=== PATIENT | female | born 1975 | race Caucasian/White ===

== ENCOUNTER 2016-11-15 19:06 | Emergency (ER) | payer OTHER ==
[~2016-11-15] VITALS: Ht 165.1 cm; Wt 95.4 kg
[~2016-11-15 19:06] MED LIST: CIPROFLOXACIN500 M1 PO; COMBIVENT RESPIM4 GM IH; GABAPENTIN600 MG PO; LISINOPRIL10 MG PO; METHADONE PO; METHADONE10 MG PO; PREDNISONE20 MG PO; PROVENTIL,2.5 MG/3 M IH
[2016-11-15] MEDS ORDERED: INDOCIN50 MG PO (21:12)
[2016-11-15] MEDS ORDERED: PREDNISONE20 MG PO (21:12)
[2016-11-15] MEDS ORDERED: FLEXERIL10 MG PO (21:12)
[2016-11-15] MEDS ORDERED: LIDODERM 5% P1 PATCH TD (22:09)
[2016-11-15 22:44] VITALS: BP 156/102
== END 2016-11-15 22:44 | disposition home or self-care (01) ==
LOC: RME 19:06 → EME 19:06 → RME 22:44
DX: M62.830 Muscle spasm of back (principal); M50.30 Other cervical disc degeneration, unspecified cervical region; M54.2 Cervicalgia; M54.9 Dorsalgia, unspecified; G89.29 Other chronic pain; Z98.1 Arthrodesis status; Z88.2 Allergy status to sulfonamides; F17.200 Nicotine dependence, unspecified, uncomplicated; I10 Essential (primary) hypertension; J45.909 Unspecified asthma, uncomplicated
CPT/HCPCS: 99281; 99284; J3010; J7512

== ENCOUNTER 2016-11-17 13:44 | Emergency (ER) | payer OTHER ==
[~2016-11-17] VITALS: Ht 165.1 cm; Wt 98.0 kg
[~2016-11-17 13:44] MED LIST changes: +FLEXERIL10 MG PO; +INDOCIN50 MG PO; +LIDODERM 5% P1 PATCH TD
[2016-11-17] MEDS ORDERED: TORADOL10 MG PO (15:43)
[2016-11-17] MEDS ORDERED: SKELAXIN800 MG PO (15:43)
[2016-11-17 17:47] VITALS: BP 150/98
== END 2016-11-17 17:47 | disposition home or self-care (01) ==
LOC: EME 13:44
DX: M54.9 Dorsalgia, unspecified (principal); G89.29 Other chronic pain; F41.9 Anxiety disorder, unspecified
CPT/HCPCS: 99281; 99283; J1100; J7050

== ENCOUNTER 2017-05-15 07:25 | Day surgery (SDC) | payer OTHER ==
[~2017-05-15] VITALS: Ht 165.1 cm; Wt 95.0 kg
[~2017-05-15 07:25] MED LIST changes: +ADVAIR 250/501 DISK IH; +GABAPENTIN400 MG PO; +LASIX40 MG PO; +METHADONE 22 MG/1 ML PO; +SEROQUEL50 MG PO; +SKELAXIN800 MG PO; +TORADOL10 MG PO
[2017-05-15 08:01] VITALS: BP 139/82
[2017-05-15] MEDS ORDERED: PERCOCET 5/31 TABLET PO (10:18)
[2017-05-15] MEDS ORDERED: COLACE100 MG PO (10:18)
[2017-05-15 11:04] VITALS: BP 144/83
[2017-05-15 11:55] VITALS: BP 115/66
== END 2017-05-15 12:06 | disposition home or self-care (01) ==
LOC: SDC
PROC: 06BY0ZC Excision of Hemorrhoidal Plexus, Open Approach (ICD-10-PCS; principal; 2017-05-15)
DX: K64.8 Other hemorrhoids (principal); K64.4 Residual hemorrhoidal skin tags; I10 Essential (primary) hypertension; J45.909 Unspecified asthma, uncomplicated; M54.12 Radiculopathy, cervical region; K21.9 Gastro-esophageal reflux disease without esophagitis; M79.7 Fibromyalgia; F17.200 Nicotine dependence, unspecified, uncomplicated; Z88.2 Allergy status to sulfonamides; Z80.0 Family history of malignant neoplasm of digestive organs
CPT/HCPCS: 88304; J0330; J0690; J1100; J2250; J2405; J3010

== ENCOUNTER 2017-11-13 10:00 | Day surgery (SDC) | payer OTHER ==
[~2017-11-13] VITALS: Ht 165.1 cm; Wt 95.3 kg
[~2017-11-13 10:00] MED LIST changes: +COLACE100 MG PO; +PERCOCET 5/31 TABLET PO
== END 2017-11-13 11:10 | disposition home or self-care (01) ==
LOC: PAIN 10:00 → SDC 10:30 → PAIN 10:30
DX: M51.16 Intervertebral disc disorders with radiculopathy, lumbar region (principal); M47.816 Spondylosis without myelopathy or radiculopathy, lumbar region; M46.1 Sacroiliitis, not elsewhere classified; M47.812 Spondylosis without myelopathy or radiculopathy, cervical region; M54.81 Occipital neuralgia; M79.7 Fibromyalgia; I10 Essential (primary) hypertension; K21.9 Gastro-esophageal reflux disease without esophagitis; E78.5 Hyperlipidemia, unspecified; F17.210 Nicotine dependence, cigarettes, uncomplicated; Z88.2 Allergy status to sulfonamides
CPT/HCPCS: J1100; J2250

== ENCOUNTER 2018-01-05 17:10 | Emergency (ER) | payer OTHER ==
[~2018-01-05] VITALS: Ht 165.1 cm; Wt 100.2 kg
[~2018-01-05 17:10] MED LIST changes: +BACLOFEN20 MG PO; +NAPROSYN500 MG PO
[2018-01-05 18:17] LABS: HEMATOCRIT 40.4 % (36.0-46.0); HEMOGLOBIN 13.8 G/DL (11.9-15.5); MCH 29.6 PG (29.0-34.0); MCHC 34.2 G/DL (30.0-36.0); MCV 86.7 FL (83-99); PLATELET COUNT 284 K/uL (156-360); RBC DIS.WIDTH-CV 13.5 % (11.8-14.6); RBC DIS.WIDTH-SD 42.2 % (39-53); RED BLOOD COUNT 4.66 M/uL (3.80-5.20)
[2018-01-05 18:25] LABS: ALBUMIN 3.9 g/dL (3.2-4.8); CHLORIDE 106 mEq/L (99-109); POTASSIUM 3.5 mEq/L (3.7-5.4); SODIUM 142 mEq/L (136-147)
[2018-01-05 18:27] LABS: GLUCOSE 98 mg/dL (70-99); TOTAL PROTEIN 7.3 g/dL (6.4-8.3)
[2018-01-05 18:29] LABS: TOTAL BILIRUBIN 0.5 mg/dL (0.0-1.0)
[2018-01-05 18:31] LABS: ALKALINE PHOSPHATASE 81 IU/L (3-129); CREATININE 1.4 mg/dL (0.6-1.3); GFR ESTIMATE (CALCULATED) 44 mL/min/
[2018-01-05 18:32] LABS: AST (GOT) 19 IU/L (2-34); UREA NITROGEN (BUN) 14 mg/dL (9-23)
[2018-01-05 18:34] LABS: ALT (GPT) 18 IU/L (3-49)
[2018-01-05 18:44] LABS: APPEARANCE SL.HAZY ((CLEAR)); BILIRUBIN NEGATIVE; BLOOD NEGATIVE; COLOR AMBER ((YELLOW)); GLUCOSE (STRIP) NEGATIVE; KETONES NEGATIVE; LEUKOCYTES SMALL; NITRITE NEGATIVE; PROTEIN (STRIP) 30; SPECIFIC GRAVITY 1.027 (1.000-1.030)
[2018-01-05 19:04] LABS: RED BLOOD CELLS 0-5 /HPF (0-5); WHITE BLOOD CELLS 0-5 /HPF (0-5)
[2018-01-05 19:05] LABS: BACTERIA 1+ /HPF; CALCIUM OXALATE CRYSTALS 1+ /HPF; EPITHELIAL CELLS 1+ /HPF; MUCUS 3+ /LPF; UCUL ADDED? NO
[2018-01-05 19:44] VITALS: BP 162/107
== END 2018-01-05 19:44 | disposition left against medical advice (07) ==
LOC: EME 17:10
PROVIDERS: Nurse Practitioner Family
DX: R10.9 Unspecified abdominal pain (principal); K59.00 Constipation, unspecified; M79.7 Fibromyalgia; Z87.891 Personal history of nicotine dependence; Z88.2 Allergy status to sulfonamides
CPT/HCPCS: 74018; 80053; 81003; 85027; 99281; 99284

== ENCOUNTER 2018-03-06 16:29 | Emergency (ER) | payer OTHER ==
[~2018-03-06] VITALS: Ht 165.1 cm; Wt 97.3 kg
[2018-03-06] MEDS ORDERED: PEN-VEE K,VEET500 MG PO (16:48)
[2018-03-06] MEDS ORDERED: MOTRIN800 MG PO (16:48)
[2018-03-06 17:09] VITALS: BP 160/122
== END 2018-03-06 17:11 | disposition home or self-care (01) ==
LOC: EME 16:29
DX: K02.9 Dental caries, unspecified (principal); F17.200 Nicotine dependence, unspecified, uncomplicated; Z88.2 Allergy status to sulfonamides
CPT/HCPCS: 99281; 99283